=== PATIENT | male | born 1975 | race Caucasian/White ===

== ENCOUNTER 2019-03-27 08:06 | Emergency (ER) | payer SELFPAY ==
[~2019-03-27] VITALS: Ht 170.2 cm; Wt 83.9 kg
[2019-03-27 08:24] VITALS: Ht 170.2 cm; Wt 83.9 kg
[2019-03-27 09:53] LABS: BASOPHIL % 1.5 % (0-2); PLATELET COUNT 316 x10^3mcL (130-400); RED CELL DISTRIBUTION WIDTH 13.1 % (11.5-14.5)
[2019-03-27 10:01] LABS: CARBON DIOXIDE 27.8 mmol/L (21-32); CHLORIDE SERUM 102 mmol/L (98-107); CREATININE SERUM 0.8 mg/dL (0.7-1.3); GFR1 > 60 mL/min; GLUCOSE SERUM 123 mg/dL (74-106); POTASSIUM SERUM 3.9 mmol/L (3.5-5.1); SODIUM SERUM 139 mmol/L (136-145)
[2019-03-27 10:05] LABS: ALBUMIN 3.4 g/dL (3.4-5.0); ALKALINE PHOSPHATASE 78 U/L (46-116); ALT/SGPT 86 U/L (16-63); AMYLASE 62 U/L (25-115); AST/SGOT 52 U/L (15-37); BILIRUBIN TOTAL 0.6 mg/dL (0.20-1.00); LIPASE 307 IU/L (73-393)
[2019-03-27 11:10] VITALS: BP 151/99
== END 2019-03-27 11:10 | disposition home or self-care (01) ==
LOC: ED 08:06
PROVIDERS: Emergency Medicine
DX: K29.00 Acute gastritis without bleeding (principal); K21.9 Gastro-esophageal reflux disease without esophagitis
CPT/HCPCS: J2405; Q0092